=== PATIENT | male | born 1955 | race Caucasian/White ===

== ENCOUNTER 2024-11-27 16:47 | Outpatient (CLI) | payer MEDICARE, OTHER, SELFPAY ==
[2024-11-27 14:47] LABS: Abs Immature Grans 0.06 10^3/uL (0.0-0.06); HCT 38.0 % (40.0-50.0); HGB 12.8 g/dL (13.5-17.5); Immature Grans % 0.7 %; MCH 30.3 pg (27.0-33.0); MCHC 33.7 % (32.0-36.0); MCV 90 fL (80-95); MPV 9.4 fL (8.0-11.0); Platelet Count 369 10^3/uL (130-400); RBC 4.23 10^6/uL (4.36-5.78); RDW 14.0 % (11.8-14.1); RDW-SD 44.9 fL; WBC 8.15 10^3/uL (4.4-10.8)
[2024-11-27 15:07] LABS: ALT 41 U/L (16-63); AST 25 U/L (15-37); Albumin 3.9 g/dL (3.4-5.0); Alkaline Phosphatase 109 U/L (46-116); Anion Gap 7.4 mmol/L (3-11); BUN 17 mg/dL (7-18); Bilirubin, Total 0.6 mg/dL (0.2-1.0); CO2 29.6 mmol/L (21.0-32.0); Calcium 9.4 mg/dL (8.5-10.1); Chloride 103 mmol/L (98-107); Estimated GFR 93.61 (mL/min/1.73m2); Glucose 167 mg/dL (74-106); Potassium 3.9 mmol/L (3.5-5.1); Sodium 140 mmol/L (136-145); Total Protein 6.8 g/dL (6.4-8.2)
== END 2024-11-27 16:48 | disposition home or self-care (01) ==
LOC: LBO 16:47
PROVIDERS: Visit Provider Internal Medicine Medical Oncology
DX: C71.9 Malignant neoplasm of brain, unspecified (principal)
CPT/HCPCS: 36415; 80053; 85025

== ENCOUNTER 2024-11-28 15:46 | Outpatient (CLI) | payer MEDICARE, OTHER, SELFPAY ==
[2024-11-28 14:50] LABS: Abs Immature Grans 0.04 10^3/uL (0.0-0.06); HCT 39.3 % (40.0-50.0); HGB 13.3 g/dL (13.5-17.5); Immature Grans % 0.4 %; MCH 30.5 pg (27.0-33.0); MCHC 33.8 % (32.0-36.0); MCV 90 fL (80-95); MPV 9.4 fL (8.0-11.0); Platelet Count 368 10^3/uL (130-400); RBC 4.36 10^6/uL (4.36-5.78); RDW 13.9 % (11.8-14.1); RDW-SD 45.6 fL; WBC 8.98 10^3/uL (4.4-10.8)
[2024-11-28 14:55] LABS: ESR 6 mm/hr (0-20)
[2024-11-28 15:13] LABS: C-Reactive Protein < 0.50 mg/dL (<or=0.5)
== END 2024-11-28 15:47 | disposition home or self-care (01) ==
LOC: LBO 15:47
PROVIDERS: Visit Provider Physician Assistant
DX: D49.6 Neoplasm of unspecified behavior of brain (principal)
CPT/HCPCS: 36415; 85652; 85025; 86140

== ENCOUNTER 2024-12-04 13:45 | Outpatient (CLI) | payer MEDICARE, OTHER, SELFPAY ==
[2024-12-04 13:54] LABS: Abs Immature Grans 0.04 10^3/uL (0.0-0.06); HCT 38.8 % (40.0-50.0); HGB 12.8 g/dL (13.5-17.5); Immature Grans % 0.5 %; MCH 29.8 pg (27.0-33.0); MCHC 33.0 % (32.0-36.0); MCV 90 fL (80-95); MPV 9.5 fL (8.0-11.0); Platelet Count 337 10^3/uL (130-400); RBC 4.30 10^6/uL (4.36-5.78); RDW 14.3 % (11.8-14.1); RDW-SD 46.3 fL; WBC 8.74 10^3/uL (4.4-10.8)
[2024-12-04 14:19] LABS: ALT 36 U/L (16-63); AST 18 U/L (15-37); Albumin 3.9 g/dL (3.4-5.0); Alkaline Phosphatase 105 U/L (46-116); Anion Gap 9.4 mmol/L (3-11); BUN 16 mg/dL (7-18); Bilirubin, Total 0.6 mg/dL (0.2-1.0); CO2 27.6 mmol/L (21.0-32.0); Calcium 9.0 mg/dL (8.5-10.1); Chloride 103 mmol/L (98-107); Estimated GFR 93.61 (mL/min/1.73m2); Glucose 110 mg/dL (74-106); Potassium 4.3 mmol/L (3.5-5.1); Sodium 140 mmol/L (136-145); Total Protein 6.9 g/dL (6.4-8.2)
== END 2024-12-04 13:46 | disposition home or self-care (01) ==
LOC: LBO 13:55
PROVIDERS: Visit Provider Internal Medicine Medical Oncology
DX: C71.9 Malignant neoplasm of brain, unspecified (principal)
CPT/HCPCS: 36415; 80053; 85025

== ENCOUNTER 2024-12-11 03:51 | Outpatient (CLI) | payer MEDICARE, OTHER, SELFPAY ==
[2024-12-11 11:38] LABS: Abs Immature Grans 0.02 10^3/uL (0.0-0.06); HCT 40.8 % (40.0-50.0); HGB 13.9 g/dL (13.5-17.5); Immature Grans % 0.3 %; MCH 31.2 pg (27.0-33.0); MCHC 34.1 % (32.0-36.0); MCV 92 fL (80-95); MPV 9.9 fL (8.0-11.0); Platelet Count 316 10^3/uL (130-400); RBC 4.45 10^6/uL (4.36-5.78); RDW 14.2 % (11.8-14.1); RDW-SD 47.6 fL; WBC 7.38 10^3/uL (4.4-10.8)
[2024-12-11 12:02] LABS: ALT 35 U/L (16-63); AST 21 U/L (15-37); Albumin 3.9 g/dL (3.4-5.0); Alkaline Phosphatase 102 U/L (46-116); Anion Gap 7.6 mmol/L (3-11); BUN 12 mg/dL (7-18); Bilirubin, Total 0.7 mg/dL (0.2-1.0); CO2 29.4 mmol/L (21.0-32.0); Calcium 9.1 mg/dL (8.5-10.1); Chloride 104 mmol/L (98-107); Estimated GFR 73.58 (mL/min/1.73m2); Glucose 79 mg/dL (74-106); Potassium 4.1 mmol/L (3.5-5.1); Sodium 141 mmol/L (136-145); Total Protein 6.9 g/dL (6.4-8.2)
== END 2024-12-11 03:52 | disposition home or self-care (01) ==
LOC: LBO 03:51
PROVIDERS: Visit Provider Internal Medicine Medical Oncology
DX: C71.9 Malignant neoplasm of brain, unspecified (principal)
CPT/HCPCS: 36415; 80053; 85025

== ENCOUNTER 2024-12-17 04:33 | Outpatient (CLI) | payer MEDICARE, OTHER, SELFPAY ==
[2024-12-17 10:31] LABS: Abs Immature Grans 0.02 10^3/uL (0.0-0.06); HCT 39.4 % (40.0-50.0); HGB 13.2 g/dL (13.5-17.5); Immature Grans % 0.3 %; MCH 30.6 pg (27.0-33.0); MCHC 33.5 % (32.0-36.0); MCV 91 fL (80-95); MPV 9.9 fL (8.0-11.0); Platelet Count 340 10^3/uL (130-400); RBC 4.31 10^6/uL (4.36-5.78); RDW 14.1 % (11.8-14.1); RDW-SD 47.7 fL; WBC 7.36 10^3/uL (4.4-10.8)
[2024-12-17 10:44] LABS: ALT 36 U/L (16-63); AST 24 U/L (15-37); Albumin 3.6 g/dL (3.4-5.0); Alkaline Phosphatase 89 U/L (46-116); Anion Gap 7.2 mmol/L (3-11); BUN 15 mg/dL (7-18); Bilirubin, Total 0.6 mg/dL (0.2-1.0); CO2 28.8 mmol/L (21.0-32.0); Calcium 8.8 mg/dL (8.5-10.1); Chloride 106 mmol/L (98-107); Estimated GFR 82.49 (mL/min/1.73m2); Glucose 86 mg/dL (74-106); Potassium 4.1 mmol/L (3.5-5.1); Sodium 142 mmol/L (136-145); Total Protein 6.5 g/dL (6.4-8.2)
== END 2024-12-17 04:34 | disposition home or self-care (01) ==
LOC: LBO 04:33
PROVIDERS: Visit Provider Internal Medicine Medical Oncology
DX: C71.9 Malignant neoplasm of brain, unspecified (principal)
CPT/HCPCS: 36415; 80053; 85025

== ENCOUNTER 2024-12-24 04:10 | Outpatient (CLI) | payer MEDICARE, OTHER, SELFPAY ==
[2024-12-24 11:23] LABS: Abs Immature Grans 0.02 10^3/uL (0.0-0.06); HCT 42.3 % (40.0-50.0); HGB 14.0 g/dL (13.5-17.5); Immature Grans % 0.3 %; MCH 30.3 pg (27.0-33.0); MCHC 33.1 % (32.0-36.0); MCV 92 fL (80-95); MPV 9.6 fL (8.0-11.0); Platelet Count 383 10^3/uL (130-400); RBC 4.62 10^6/uL (4.36-5.78); RDW 14.0 % (11.8-14.1); RDW-SD 47.0 fL; WBC 7.53 10^3/uL (4.4-10.8)
[2024-12-24 11:52] LABS: ALT 34 U/L (16-63); AST 18 U/L (15-37); Albumin 3.9 g/dL (3.4-5.0); Alkaline Phosphatase 91 U/L (46-116); Anion Gap 7.9 mmol/L (3-11); BUN 13 mg/dL (7-18); Bilirubin, Total 0.6 mg/dL (0.2-1.0); CO2 30.1 mmol/L (21.0-32.0); Calcium 9.3 mg/dL (8.5-10.1); Chloride 104 mmol/L (98-107); Estimated GFR 82.49 (mL/min/1.73m2); Glucose 87 mg/dL (74-106); Potassium 4.8 mmol/L (3.5-5.1); Sodium 142 mmol/L (136-145); Total Protein 6.8 g/dL (6.4-8.2)
== END 2024-12-24 04:11 | disposition home or self-care (01) ==
PROVIDERS: Visit Provider Internal Medicine Medical Oncology
DX: C71.9 Malignant neoplasm of brain, unspecified (principal)
CPT/HCPCS: 36415; 80053; 85025

== ENCOUNTER 2024-12-27 12:14 | Outpatient (REF) | payer MEDICARE, OTHER, SELFPAY ==
[2024-12-28 11:14] LABS: Glucose Negative (Negative)
== END 2024-12-27 12:15 | disposition home or self-care (01) ==
LOC: LBN 12:14
PROVIDERS: Visit Provider Internal Medicine Medical Oncology
DX: C71.9 Malignant neoplasm of brain, unspecified (principal)
CPT/HCPCS: 81003

== ENCOUNTER 2024-12-31 04:32 | Outpatient (CLI) | payer MEDICARE, OTHER, SELFPAY ==
[2024-12-31 11:47] LABS: Abs Immature Grans 0.06 10^3/uL (0.0-0.06); HCT 43.5 % (40.0-50.0); HGB 14.5 g/dL (13.5-17.5); Immature Grans % 0.6 %; MCH 30.4 pg (27.0-33.0); MCHC 33.3 % (32.0-36.0); MCV 91 fL (80-95); MPV 9.8 fL (8.0-11.0); Platelet Count 368 10^3/uL (130-400); RBC 4.77 10^6/uL (4.36-5.78); RDW 13.5 % (11.8-14.1); RDW-SD 45.6 fL; WBC 10.83 10^3/uL (4.4-10.8)
[2024-12-31 12:37] LABS: ALT 35 U/L (16-63); AST 23 U/L (15-37); Albumin 4.0 g/dL (3.4-5.0); Alkaline Phosphatase 97 U/L (46-116); Anion Gap 7.8 mmol/L (3-11); BUN 13 mg/dL (7-18); Bilirubin, Total 0.7 mg/dL (0.2-1.0); CO2 30.2 mmol/L (21.0-32.0); Calcium 9.6 mg/dL (8.5-10.1); Chloride 102 mmol/L (98-107); Estimated GFR 82.49 (mL/min/1.73m2); Glucose 96 mg/dL (74-106); Potassium 4.8 mmol/L (3.5-5.1); Sodium 140 mmol/L (136-145); Total Protein 6.9 g/dL (6.4-8.2)
== END 2024-12-31 04:33 | disposition home or self-care (01) ==
LOC: LBO 04:32
PROVIDERS: Visit Provider Internal Medicine Medical Oncology
DX: C71.9 Malignant neoplasm of brain, unspecified (principal)
CPT/HCPCS: 36415; 80053; 85025

== ENCOUNTER 2024-12-31 12:24 | Emergency (ER) | payer MEDICARE, OTHER, SELFPAY ==
[2024-12-31 12:34] VITALS: BP 163/82; PULSE 59; RESP 16; TEMP 36.6; O2SAT 96
--- NOTE | 2024-12-31 12:58 | W.ED.GENAD ---
Discharge Plan Disposition Patient Disposition: Home Discharge Details Clinical Impression: Constipation, Adrenal nodule, Lesion of spleen Primary Care Provider: Unknown,Unknown ED Provider: Matthew Gomes Home Meds and New Rx's Prescriptions: New senna 8.6 mg capsule 8.6 mg PO DAILY PRNQty: 14 0RF docusate sodium [Colace] 100 mg capsule 100 mg PO DAILY Qty: 20 0RF Continued omeprazole 20 mg capsule,delayed release(DR/EC) 20 mg PO DAILY diazepam [Valium] 5 mg tablet 5 mg PO QHS PRN metoprolol tartrate [Lopressor] 50 mg tablet 25 mg PO BID multivitamin Tablet 1 tab PO DAILY celecoxib [Celebrex] 200 mg capsule 200 mg PO BID atorvastatin [Lipitor] 10 mg tablet 10 mg PO QHS Elocon PRN Voltaren PRN naftifine PRN zinc sulfate [Zincate] 220 mg .ROUTE DAILY zofran PRN Rx Instructions: Every 6 hours as needed. Keflex Patient Comments: Couse completed. Voltaren PRN Discharge Instructions Additional Instructions: You are seen in the emergency department for your constipation. Your CAT scan showed no sign of any blockages in your intestines. As we discussed you do have adrenal nodules. Please follow-up with your primary care provider. You are also found to have cysts of your kidneys. There is also a lesion in your spleen. Please follow-up with your oncology providers concerning these incidental findings. Medications have been sent to your pharmacy to treat your constipation. Please also use MiraLAX or ClearLax twice a day. Please return to emergency department if you develop worsening abdominal discomfort begin vomiting I do not stop or if you develop any fevers. Otherwise please follow-up with your oncology provider as previously scheduled. Discharge Data Discharge Date/Time-TO BE ENTERED AT DEPARTURE: 12/31/24 15:43 HPI General Date/Time Provider Initiated Documentation: 12/31/24 12:54. HPI Narrative: MDM This is an overall well-appearing afebrile and not tachycardic 69-year-old male with history of glioblastoma and past abdominal surgical history now with distended abdomen and abdominal tenderness concerning for the possibility of SBO for which patient will undergo CT of his abdomen pelvis with IV contrast given his recent reassuring outpatient labs. No rash to abdomen to suggest zoster. No pain on proportion to suggest necrotizing soft tissue infection. Given prior appendectomy my suspicion for recurrent appendicitis is low. No diarrhea to suggest diverticulitis. No dysuria or frequency to suggest UTI. No chest pain to suggest ACS. No shortness of breath to suggest PE so did not obtain D-dimer. No cough to suggest pneumonia. No flank pain to suggest ureterolithiasis. 3:[address] scan was significant for constipation. He was found to have adrenal nodules which had previously been noted on his CT scans in the [facility] [place] in addition to the splenic lesion. We discussed these unexpected findings. He has outpatient oncology follow-up. He had not tried senna. I offered manual disimpaction attempt but he declined. I prescribed him with senna umbilical site. He was given a dose of mag citrate to take home. I counseled him on staying hydrated and walking as much as he was able as this would help improve his symptoms. We discussed that he is to return if he began vomiting did not stop or if he had any worsening abdominal pain. He understood his return indications and was discharged with an empiric trial of expectant outpatient management. HPI This is a patient with a history of glioblastoma presenting with constipation. The patient reports experiencing intermittent constipation, which has worsened since starting chemotherapy 6 weeks ago. His final treatment is scheduled for 01/04/2025. He also reports persistent nausea but no vomiting. He does not experience any chest pain or difficulty breathing. The patient has a history of two abdominal surgeries: one involving the removal of his appendix and a portion of his small intestine, and another for prostate cancer. He also has irritable bowel syndrome (IBS), which has caused severe pain during bowel movements in the past, to the point where he bends over in discomfort. However, he notes that the current issue is not as severe as previous episodes. He underwent a colonoscopy in 12/2023 due to bleeding associated with his IBS, which revealed a bleeding polyp that was subsequently removed. This morning, he noticed some bleeding after manually removing stool with a glove, a method he sometimes resorts to when dealing with hard, pebble-like stools. PAST SURGICAL HISTORY: Appendectomy with removal of a portion of the small intestine Prostatectomy Exam General: Well-appearing in no acute distress speaking in complete sentences. Head: Normocephalic, atraumatic. Eye: Extraocular eye movements intact. No conjunctival injection. No scleral icterus. Ear, nose, mouth, throat: Grossly normal inspection. Normal voice, handling secretions normally. Neck: Trachea midline. Cardiovascular: Well-perfused distal extremities. Regular rate and rhythm Respiratory: Nonlabored respiration. Clear lungs bilaterally Gastrointestinal: Moderately distended abdomen generalized tenderness. No rebound. No guarding. Musculoskeletal: No edema. Moving all 4 extremities spontaneously. Skin: Normal for age and race, grossly normal temperature and turgor. No acute rash. Neurologic: Alert and appropriate, no apparent acute deficits. Psychiatric: Mood and manner are appropriate. Grooming and personal hygiene are appropriate. Related Data Home Medications ?Medication ?Instructions ?Recorded ?Confirmed Elocon PRN 12/31/24 Keflex 12/31/24 Voltaren PRN 12/31/24 Voltaren PRN 12/31/24 atorvastatin 10 mg tablet (Lipitor) 10 mg PO QHS 12/31/24 12/31/24 celecoxib 200 mg capsule (Celebrex) 200 mg PO BID 12/31/24 12/31/24 diazepam 5 mg tablet (Valium) 5 mg PO QHS PRN 12/31/24 12/31/24 docusate sodium 100 mg capsule 100 mg PO DAILY #20 caps 12/31/24 (Colace) metoprolol tartrate 50 mg tablet 25 mg PO BID 12/31/24 12/31/24 (Lopressor) multivitamin 1 tab PO DAILY 12/31/24 12/31/24 naftifine PRN 12/31/24 omeprazole 20 mg capsule,delayed 20 mg PO DAILY 12/31/24 12/31/24 release sennosides 8.6 mg capsule (senna) 8.6 mg PO DAILY PRN #14 caps 12/31/24 zinc sulfate 220 mg .ROUTE DAILY 12/31/24 12/31/24 zofran PRN 12/31/24 Previous Rx's ?Medication ?Instructions ?Recorded docusate sodium 100 mg capsule 100 mg PO DAILY #20 caps 12/31/24 (Colace) sennosides 8.6 mg capsule (senna) 8.6 mg PO DAILY PRN #14 caps 12/31/24 General Stated Complaint: [facility]Medical SHARON: 3 Course Vital Signs Vital signs: Vital Signs Temperature 36.6 C 12/31/24 12:34 Pulse 59 L 12/31/24 12:34 Respiratory Rate 16 12/31/24 12:34 Blood Pressure 163/82 H 12/31/24 12:34 Pulse Oximetry 96 12/31/24 12:34 Temperature 36.6 C 12/31/24 12:34 Temperature Source Oral 12/31/24 12:34 Pulse 59 L 12/31/24 12:34 Respiratory Rate 16 12/31/24 12:34 Blood Pressure 163/82 H 12/31/24 12:34 Pulse Oximetry 96 12/31/24 12:34 Pain Level 3 12/31/24 12:34 PFSH All Active Problems (Updated 12/31/24 @ 15:06 by Matthew Gomes MD) Lesion of spleen (Acute) Adrenal nodule (Acute) Constipation (Acute) Social History Smoking/Tobacco Use Status: Former Tobacco Use Smoking risk assessment performed?: Yes Alcohol Intake: current Alcohol Intake frequency: holidays/special occasions only Substance use type: does not use Housing: house
--- NOTE | 2024-12-31 13:00 | DI.CT_ITS ---
Exam(s) CT ABDOMEN PELVIS W EXAM: CT ABDOMEN PELVIS W CLINICAL HISTORY: Distended abdomen surgical history constipation TECHNIQUE: Imaging Protocol: Axial computed tomography images with coronal and sagittal reformatted images were created and reviewed. CONTRAST MATERIAL: Intravenous: Omnipaque 350 Contrast volume:100 mL Oral: No COMPARISON: No exams were available for comparison FINDINGS: ABDOMEN: Lung Bases: Coronary artery calcifications are present. Liver: Normal density. There are few tiny hypodensities in the liver which are too small for further characterization. Portal, Superior Mesenteric, and Splenic Veins: Unremarkable. Gallbladder and Biliary Tract: No radiodense calculus or dilation. Pancreas: Normal density, no abnormal calcifications or inflammatory process. Spleen: There is a 1.6 cm enhancing lesion in the spleen likely reflecting a hemangioma. Adrenals: There is a 2.5 x 2.1 cm left adrenal nodule. There is a 1.6 by 1.3 cm right adrenal nodule. Kidneys: Normal size, contour and axis. No radiodense stones or obstructive uropathy. There are bilateral simple renal cysts. There is a cyst in the inferior medial left kidney which does have some calcification associated with it. Abdominal Aorta: Abdominal portion non-dilated. Atherosclerotic calcification is present. Bowel: No obstruction or bowel wall thickening. There is stool throughout the colon suggesting constipation. There is no pneumatosis. There is an anastomosis in the small bowel in the mid abdomen. The stomach is incompletely distended limiting evaluation. Peritoneal Cavity: No ascites, collection or mesenteric inflammatory response. No free air. Lymph Nodes: Within normal limits. Bones: Within normal limits for the patient's age. Soft Tissues: Unremarkable. PELVIS: Bladder: Symmetric distention, no gross wall thickening. Reproductive Organs: The prostate gland is absent. Lymph Nodes: Within normal limits. Bones: Within normal limits for the patient's age. IMPRESSION: 1. There is a large amount of stool throughout the colon consistent with constipation. 2. There is a small bowel anastomosis in the mid abdomen which is unremarkable. There is no evidence of obstruction. 3. Bilateral simple renal cysts. No follow-up is recommended. 4. Bilateral adrenal nodules. The largest is on the left and measures 2.5 x 2.1 cm. These likely reflect adrenal adenomas. Nonemergent MRI of the adrenal glands is recommended for further characterization. Unexpected findings RADIATION DOSE DELIVERED: 864.6mGy.cm Total DLP DATA REPOSITORY: All CT scans at this facility are submitted to the National Radiology Data Registry (NRDR) Dose Index Registry (DIR) with the [employer] ([employer]). RADIATION OPTIMIZATION: All CT scans at this facility use at least one of these dose optimization techniques: automated exposure control; mA and/or kV adjustment per patient size (includes targeted exams where dose is matched to clinical indication); or iterative reconstruction.
[2024-12-31] MEDS: Normal Saline 500 ML IV (13:37)
[2024-12-31] MEDS: Omnipaque 350 MG/ML 100 ML BTL IJ (14:22)
[2024-12-31] MEDS: Normal Saline - Diluent 50 ML VIAL IJ (14:23)
[2024-12-31] MEDS: Normal Saline Flush 10 ML SYR IVP (14:23)
[2024-12-31] MEDS: Magnesium Citrate 300 ML BTL 150 ML PO (15:26)
[2024-12-31] MEDS: Sennosides/Docusate Sodium TAB 1 TAB PO (15:29)
[2024-12-31 15:38] VITALS: BP 146/89; PULSE 77; RESP 16; TEMP 36.9; O2SAT 98
== END 2024-12-31 15:43 | disposition home or self-care (01) ==
PROVIDERS: Emergency Provider Emergency Medicine
DX: K59.00 Constipation, unspecified (principal); E27.9 Disorder of adrenal gland, unspecified; D73.89 Other diseases of spleen; N28.1 Cyst of kidney, acquired; Z85.841 Personal history of malignant neoplasm of brain
CPT/HCPCS: 36415; 80053; 96360; 99285; 74177; 85025; 99284; J3490

== ENCOUNTER 2025-01-08 09:56 | Outpatient (CLI) | payer MEDICARE, OTHER, SELFPAY ==
[2025-01-08 12:12] LABS: Abs Immature Grans 0.04 10^3/uL (0.0-0.06); HCT 45.5 % (40.0-50.0); HGB 15.0 g/dL (13.5-17.5); Immature Grans % 0.4 %; MCH 30.1 pg (27.0-33.0); MCHC 33.0 % (32.0-36.0); MCV 91 fL (80-95); MPV 10.1 fL (8.0-11.0); Platelet Count 379 10^3/uL (130-400); RBC 4.99 10^6/uL (4.36-5.78); RDW 13.2 % (11.8-14.1); RDW-SD 44.1 fL; WBC 9.81 10^3/uL (4.4-10.8)
[2025-01-08 12:27] LABS: ALT 28 U/L (16-63); AST 15 U/L (15-37); Albumin 4.1 g/dL (3.4-5.0); Alkaline Phosphatase 105 U/L (46-116); Anion Gap 5.8 mmol/L (3-11); BUN 17 mg/dL (7-18); Bilirubin, Total 0.5 mg/dL (0.2-1.0); CO2 31.2 mmol/L (21.0-32.0); Calcium 9.4 mg/dL (8.5-10.1); Chloride 104 mmol/L (98-107); Estimated GFR 93.61 (mL/min/1.73m2); Glucose 98 mg/dL (74-106); Potassium 4.3 mmol/L (3.5-5.1); Sodium 141 mmol/L (136-145); Total Protein 7.2 g/dL (6.4-8.2)
[2025-01-08 12:32] LABS: Glucose Negative (Negative)
== END 2025-01-08 09:57 | disposition home or self-care (01) ==
LOC: LBO 09:56
PROVIDERS: Visit Provider Internal Medicine Medical Oncology
DX: C71.9 Malignant neoplasm of brain, unspecified (principal)
CPT/HCPCS: 36415; 80053; 81003; 85025